=== PATIENT | female | born 1990 | race Two or more races ===

== ENCOUNTER 2024-12-01 08:57 | Emergency (ER) | payer BC, MEDICAID, SELFPAY ==
--- NOTE | 2024-12-01 09:01 | EKG_ITS ---
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
[2024-12-01 09:19] VITALS: BP 149/92; PULSE 77; RESP 16; TEMP 36.8; O2SAT 96; BMI 39.6
--- NOTE | 2024-12-01 09:26 | XR_ITS ---
Examination: CT brain head without contrast. 2-D sagittal coronal reconstructions Date and time of exam:December 01, 2024 0953 hours INDICATIONS: Onset headaches dizziness nausea vomiting beginning 3 days ago CTDI: vol (mGy):50.1 DLP: (mGycm):1005 Technique: Multiple CT axial sections of the brain have been obtained, 5 mm slice thickness. Contrast has not been administered. 2-D sagittal, coronal reconstructions have been obtained Low dose protocols were performed. One or more of the following dose reduction techniques were used; automated exposure control, adjustment of the mA and/or KV according to patient size, use of iterative reconstruction technique. Findings: No significant ventricular enlargement. Intra-axial or extra-axial hemorrhage density is not seen. No mass effect or midline shift Basal cisterns are not remarkable. Fourth ventricle is midline. Cranial vault intact. Impression: Negative for acute hemorrhage, mass effect or midline shift If the symptoms are new onset and persistent, consider brain MRI follow-up, stroke protocol
--- NOTE | 2024-12-01 09:27 | PD.EDRME ---
Rapid Medical Screening Exam RME Arrival date/time: 12/01/24 08:57 This is a 34-year-old female with complaints of headache for 3 days now vomiting and complaints of chest pain x 1 hour. I have greeted and performed a focused initial assessment of this patient. Initial appropriate labs ordered at this time. A comprehensive ED assessment and evaluation of the patient and analysis of all test and completion of medical decision making process will be conducted by additional ED provider. Chief Complaint: Headache Time Seen by Provider: 12/01/24 09:14 Vital signs: Vital Signs Temperature 98.2 F 12/01/24 09:19 Pulse Rate 77 12/01/24 09:19 Respiratory Rate 16 12/01/24 09:19 Blood Pressure 149/92 H 12/01/24 09:19 Pulse Oximetry (%) 96 12/01/24 09:19 Oxygen Delivery Method Room Air 12/01/24 09:19
[2024-12-01] MEDS: ONDANSETRON ODT 4 MG TABRAP PO (09:29)
[2024-12-01 09:57] LABS: Basophils % (Auto) 1 % (0-2.5); Eosinophils # (Auto) 0.1 Thou/mm3 (0.0-0.5); Eosinophils % (Auto) 2 % (0-10); Hematocrit 40.6 % (36.0-46.0); Hemoglobin 13.7 g/dL (12.0-16.0); Immature Granulocytes % (Auto) 0 % (0-0); Immature Granulocytes Auto 0.02 Thou/mm3 (0.00-0.00); Lymphocytes # (Auto) 2.3 Thou/mm3 (1.0-4.8); Lymphocytes % (Auto) 35 % (10-50); Mean Corpuscular HGB Conc 33.7 g/dl (31.0-37.0); Mean Corpuscular Hemoglobin 27.8 pg (25.0-35.0); Mean Corpuscular Volume 83 fL (80-100); Monocytes # (Auto) 0.3 Thou/mm3 (0.0-0.8); Monocytes % (Auto) 5 % (0-12); Neutrophils # (Auto) 3.7 Thou/mm3 (1.8-7.7); Neutrophils % (Auto) 57 % (37-80); Nucleated Red Blood Cell % 0 /100 WBC (0); Platelet Count 434 Thou/mm3 (140-440); RDW Standard Deviation 37.4 fL (36.4-46.3); Red Blood Count 4.92 Miln/mm3 (4.00-5.20); White Blood Count 6.4 Thou/mm3 (3.6-11.0)
[2024-12-01 10:02] LABS: Collection Type, Urine Clean Catch
[2024-12-01 10:11] LABS: Alanine Aminotransferase 20 U/L (10-49); Albumin, Serum 4.8 gm/dL (3.5-5.0); Albumin/Globulin Ratio 1.5 (1.2-2.2); Alkaline Phosphatase 91 U/L (46-116); Anion Gap 8 (7-16); Aspartate Amino Transferase 19 U/L (0-34); BUN/Creatinine Ratio 16 Ratio (12-20); Bilirubin,Total 0.4 mg/dL (0.3-1.2); Blood Urea Nitrogen 11 mg/dL (9-23); Calcium 9.9 mg/dL (8.3-10.6); Calcium (Corrected) 9.9 mg/dL (8.5-10.1); Carbon Dioxide 26.2 mMol/L (20.0-31.0); Chloride 104 mMol/L (98-107); Creatinine (Component) 0.7 mg/dL (0.6-1.3); Estimated Creatinine Clearance 134.9 mL/min (>60); Globulin 3.1 gm/dL (2.3-3.5); Glucose 98 mg/dL (74-106); Lipase 31 U/L (12-53); Osmolality,Calculated 275 (275-295); Potassium 4.1 mMol/L (3.4-5.1); Sodium 138 mMol/L (136-145); Total Protein 7.9 gm/dL (5.7-8.2); Troponin I < 0.002 ng/mL (0.0-0.045); eGFR > 60 See Note
[2024-12-01 10:15] LABS: HCG Qualitative,Urine Negative
[2024-12-01 10:17] LABS: Bacteria,Urine Rare; Bilirubin,Urine Negative (Negative); Blood,Urine Trace (Negative); Clarity,Urine Turbid (Clear/Hazy); Color,Urine Colorless (Lt Yel-Yel); Glucose, Urine Negative (Negative); Ketones,Urine Negative (Negative); Leukocyte Esterase,Urine Positive (Negative); Nitrite,Urine Negative (Negative); Protein,Urine 1+ (Neg - Trace); RBC,Urine 4 /hpf (0-3); Specific Gravity,Urine 1.016 (1.001-1.035); Squamous Epithelial Cell,Urine 5 /hpf (0-5); Urobilinogen,Urine Negative mg/dL (0.0-1.0); WBC,Urine 3 /hpf (0-5)
[2024-12-01 11:31] VITALS: BP 138/88; PULSE 68; RESP 18; TEMP 36.6; O2SAT 99
--- NOTE | 2024-12-01 11:37 | EDNOTE_ITS ---
<Statement entered by Kenisha Harris MD - 12/01/24 12:28> As co-signing physician, I was present and available for consult prn. I concur with the plan and care as documented by the midlevel provider. ED Headache RME/HPI General Chief Complaint: Headache Stated Complaint: CXP SINCE 629 TODAY,HEADACHE FOR 3 DAYS Time Seen by Provider: 12/01/24 09:14 Arrival date/time: 12/01/24 08:57 RME / HPI RME / HPI Narrative: 34-year-old female patient with no significant medical history, came in for evaluation regarding headache. Patient's been having headache for the last 3 days, described as dull ache, frontal in location, severity 6 out of 10 nonradiating. Patient also complained of left-sided chest pain since 6:00 this morning severity mild. Denies any cough denies any fever denies any neck pain denies any other complaints. No medication was taken prior to arrival. Related Data Previous Rx's ?Medication ?Instructions ?Recorded ibuprofen 600 mg tablet 600 mg PO Q6H #30 tabs 07/01/20 rizatriptan 10 mg tablet (Maxalt) 10 mg PO Q2H PRN headache #30 tabs 12/01/24 Allergies Allergy/AdvReac Type Severity Reaction Status Date / Time No Known Allergies Allergy Verified 12/01/24 09:00 Review of Systems Review of Systems Narrative Review of Systems: Review of system reviewed and within normal limits except mentioned in HPI ED Exam Narrative Physical exam: VITAL SIGNS: Reviewed. GENERAL APPEARANCE: Alert and interactive, follows commands, no acute distress, HEAD AND FACE: Non-traumatic. ENT: PERRL, pink conjunctivitis, eyelid no trauma, Mucous membrane moist. NECK: Supple, nontender, no nuchal rigidity. CHEST: No tenderness, no crepitus, no paradoxical movement, no retractions. LUNGS: Clear, well ventilated, symmetric, no rales, no wheezing, no ronchi, no stridor, good breath sounds bilaterally. HEART: Regular rate, regular rhythm, no murmur, no gallops. ABDOMEN: Soft, positive bowel sounds, nondistended, no guarding, nontender, no rebound, no masses, RECTAL: Deferred. GENITAL: Deferred. NEUROLOGICAL: Gross motor function intact sensory function intact, Appropriate for age. MUSCULOSKELETAL: low back nontender, full range of motion. EXTREMITIES: Nontender, full range of motion. SKIN: Color pink, dry, no rash, no lacerations, no abrasions, no contusions. LYMPHATICS: Deferred. Course Quality Measures none Orders Category Date Time Status EKG (ED ONLY) *Do not use* NOW Care 12/01/24 09:[address] head/brain wo con Stat Exams 12/01/24 09:26 Completed EKG (ED Only) Stat Exams 12/01/24 09:01 Ordered CBC Stat Lab 12/01/24 09:38 Completed Comprehensive Metabolic Panel Stat Lab 12/01/24 09:38 Completed HCG Qualitative,Urine Stat Lab 12/01/24 09:50 Completed Lipase Stat Lab 12/01/24 09:38 Completed Troponin I Stat Lab 12/01/24 09:38 Completed Urinalysis Stat Lab 12/01/24 09:50 Completed Ketorolac Inj [Toradol Inj] Med 12/01/24 11:32 Discontinued 30 mg IM X1 ONE Ondansetron Odt [Zofran Odt] Med 12/01/24 09:26 Discontinued 4 mg PO X1 ONE Vital Signs Vital signs: Vital Signs Temperature 98.2 F 12/01/24 09:19 Pulse Rate 77 12/01/24 09:19 Respiratory Rate 16 12/01/24 09:19 Blood Pressure 149/92 H 12/01/24 09:19 Pulse Oximetry (%) 96 12/01/24 09:19 Oxygen Delivery Method Room Air 12/01/24 09:19 Headache MDM Narrative MDM Narrative:: 34-year-old female patient with no significant medical history, came in for evaluation regarding headache. Patient's been having headache for the last 3 days, described as dull ache, frontal in location, severity 6 out of 10 nonradiating. Patient also complained of left-sided chest pain since 6:00 this morning severity mild. Denies any cough denies any fever denies any neck pain denies any other complaints. No medication was taken prior to arrival. Cardiac workup all came back normal. Patient EKG was noted to be normal sinus rhythm, no ST segment elevation depression noted. CT scan of the head also came back unremarkable. Results discussed with the patient. Prior to discharge patient told me that she is still having headache prior to giving Toradol IM. But her chest pain is totally gone. Patient is stable for discharge home on Maxalt. Patient was also advised to follow-up with her PCP and for referral to a neurologist if medication will not be helping her. Currently patient is ambulatory unaided. Patient data External records reviewed:: None Clinical information provided by:: patient Social determinants that could affect healthcare access:: none Patient has the following chronic illnesses:: None How is presenting disease/condition affected by chronic disease/condition?: no chronic disease Evaluation data The following diagnostics were reviewed and interpreted by me:: lab results, radiology exam(s) and EKG tracing(s) Lab and/or radiology exams considered but not ordered:: None Interpretation Summary: Cardiac workup all came back unremarkable. Troponin is normal CT scan of the head came back unremarkable. EKG showed normal sinus rhythm, ventricular rate of 82 bpm, no ST segment elevation depression Medications / Prescriptions Medications or Prescriptions considered but not ordered:: None Medication administrations:: Medication Administration History Discontinued Medications Ketorolac Tromethamine (Ketorolac Inj 60 Mg/2 Ml Vial) 30 mg IM X1 ONE Stop: 12/01/24 11:33 Ondansetron HCl (Ondansetron Odt 4 Mg Tabrap) 4 mg PO X1 ONE; Protocol Stop: 12/01/24 09:27 Last Admin: 12/01/24 09:29 Dose: 4 mg Documented By: GABRIEL Toradol and Zofran Consultations Consultation(s) initiated? (list below): No Diagnosis Differential diagnosis headache: migraine, tension headache and headache Most likely diagnosis given after review of the tests above:: Headache, chest pain Admission Indicated Admission indicated?: not indicated Admission Request Was there a request for admission?: No Disposition Plan Disposition Plan: Discharge Discharge Attestation Discharge Attestation: The patient was given an opportunity to ask questions and understood the discharge instructions. Discharge instructions specifically effects, indications for sooner follow up or return to the emergency department, and the expected course of current diagnosis. Patient condition: Stable Discharge Plan Plan Patient Disposition: HOME (Self Care) Disposition Comment: stable Prescriptions/Referrals Prescriptions/Med Rec: New rizatriptan [Maxalt] 10 mg tablet 10 mg PO Q2H PRN (Reason: headache) Qty: 30 0RF Rx Instructions: do not exceed 3 doses per 24 hrs No Action ibuprofen 600 mg tablet 600 mg PO Q6H Qty: 30 0RF Referrals: Gary Cobb PA-C [Primary Care Provider] - In 1 week Problem List Clinical Impression: Headache, Chest pain Patient/Caregiver Discharge Instructions Discharge Activity: activity as tolerated Education Materials: Self-Care for Headaches, ED Chest Pain, Noncardiac Additional Instructions: Thank you for the opportunity for serving you today. You are stable for discharged . You are advised to: Follow-up with your PCP in 1 to 2 days Return to ED for worsening of symptoms Increase oral fluids Take medication as prescribed Print Language: Thai Stand Alone Forms: Sarahy Award Info., Patient Portal Info Letter PA/ARIEL Supervising Physician STEVEN/ARIEL Supervising Physician: MD Steven
[2024-12-01] MEDS: KETOROLAC INJ 60 MG/2 ML VIAL 30 MG IM (11:42)
== END 2024-12-01 11:45 | disposition home or self-care (01) ==
PROVIDERS: Nurse Practitioner Primary Care; Emergency Provider Emergency Medicine; PCP Physician Assistant
DX: R51.9 Headache, unspecified (principal); R07.89 Other chest pain; R42 Dizziness and giddiness; R11.2 Nausea with vomiting, unspecified; I49.8 Other specified cardiac arrhythmias
CPT/HCPCS: 36415; 70450; 80053; 81001; 81025; 83690; 84484; 85025; 93005; 96372; 99284; J1885; Q0162

== ENCOUNTER → 2025-05-25 | Outpatient (CLI) | payer BC, MEDICAID, SELFPAY ==
[2025-05-25 09:01] LABS: Basophils # (Auto) 0.0 Thou/mm3 (0.0-0.2); Basophils % (Auto) 0 % (0-2.5); Eosinophils # (Auto) 0.1 Thou/mm3 (0.0-0.5); Eosinophils % (Auto) 2 % (0-10); Hematocrit 40.8 % (36.0-46.0); Hemoglobin 13.3 g/dL (12.0-16.0); Immature Granulocytes Auto 0.01 Thou/mm3 (0.00-0.00); Lymphocytes # (Auto) 2.1 Thou/mm3 (1.0-4.8); Lymphocytes % (Auto) 32 % (10-50); Mean Corpuscular HGB Conc 32.6 g/dl (31.0-37.0); Mean Corpuscular Hemoglobin 28.0 pg (25.0-35.0); Mean Corpuscular Volume 86 fL (80-100); Monocytes # (Auto) 0.3 Thou/mm3 (0.0-0.8); Monocytes % (Auto) 5 % (0-12); Neutrophils # (Auto) 4.0 Thou/mm3 (1.8-7.7); Neutrophils % (Auto) 61 % (37-80); Nucleated Red Blood Cell # 0.00 Thou/mm3 (0.00-0.00); Nucleated Red Blood Cell % 0 /100 WBC (0); Platelet Count 438 Thou/mm3 (140-440); RDW Standard Deviation 40.6 fL (36.4-46.3); Red Blood Count 4.75 Miln/mm3 (4.00-5.20); White Blood Count 6.6 Thou/mm3 (3.6-11.0)
[2025-05-25 09:04] LABS: Glucose Estimated Average 97 mg/dL (80-131); Hemoglobin A1C 5.0 % Hgb (4.8-6.0)
[2025-05-25 09:12] LABS: Alanine Aminotransferase 19 U/L (10-49); Albumin, Serum 4.3 gm/dL (3.5-5.0); Albumin/Globulin Ratio 1.6 (1.2-2.2); Alkaline Phosphatase 75 U/L (46-116); Anion Gap 10 (7-16); Aspartate Amino Transferase 15 U/L (0-34); BUN/Creatinine Ratio 13 Ratio (12-20); Bilirubin,Total 0.6 mg/dL (0.3-1.2); Blood Urea Nitrogen 9 mg/dL (9-23); Calcium 8.9 mg/dL (8.3-10.6); Calcium (Corrected) 8.9 mg/dL (8.5-10.1); Carbon Dioxide 23.8 mMol/L (20.0-31.0); Cardiac Risk Estimate 4.5 RATIO (3.7-5.6); Chloride 108 mMol/L (98-107); Cholesterol 208 mg/dL (132-200); Creatinine (Component) 0.7 mg/dL (0.6-1.3); Free T4 (Free Thyroxine) 0.99 ng/dL (0.89-1.76); Globulin 2.7 gm/dL (2.3-3.5); Glucose 103 mg/dL (74-106); HDL Cholesterol 46 mg/dL (40-60); LDL Cholesterol,Calculated 126 mg/dL (0-130); Osmolality,Calculated 281 (275-295); Potassium 4.1 mMol/L (3.4-5.1); Sodium 142 mMol/L (136-145); Thyroid Stimulating Hormone 0.87 uIU/mL (0.55-4.78); Total Protein 7.0 gm/dL (5.7-8.2); Triglycerides 180 mg/dL (30-150); eGFR > 60 See Note
[2025-05-25 09:55] LABS: Hepatitis C Antibody Non Reactive (Non React)
[2025-05-29 09:40] LABS: Direct LDL* 137 mg/dL (<100)
== END | disposition home or self-care (01) ==
PROVIDERS: PCP Nurse Practitioner Family; Referring Provider Nurse Practitioner Family; Visit Provider Nurse Practitioner Family
DX: Z13.220 Encounter for screening for lipoid disorders (principal); Z11.59 Encounter for screening for other viral diseases; Z13.1 Encounter for screening for diabetes mellitus; Z13.29 Encounter for screening for other suspected endocrine disorder
CPT/HCPCS: 36415; 80053; 80061; 83036; 83721; 84439; 84443; 85025; 86803

== ENCOUNTER → 2025-08-18 | Outpatient (CLI) | payer BC, MEDICAID, SELFPAY ==
--- NOTE | 2025-08-18 12:59 | XR_ITS ---
Examination: Abdomen sonogram, complete Date and time of exam: August 18, 2025, 1329 hours INDICATIONS: Lump in the left upper abdomen note is beginning 3 days ago. Technique: Multiple real-time grayscale transabdominal sonographic images of the abdomen have been obtained. Findings: Normal gallbladder. Normal common bile duct 0.3 cm Pancreatic head 3.0 cm Aorta not enlarged Liver 15.4 cm lobular contour fatty infiltration Normal hepatopedal portal venous flow Patent IVC Right kidney 10.1 cm cortex 2.0 cm Left kidney 9.8 cm cortex 2.2 cm No hydronephrosis Spleen 10.0 cm IMPRESSION: Normal gallbladder Normal common bile duct Fatty infiltration throughout the liver, suspect primary hepatocellular disease
[2025-08-18 14:40] LABS: Cardiac Risk Estimate 4.3 RATIO (3.7-5.6); Cholesterol 232 mg/dL (132-200); HDL Cholesterol 54 mg/dL (40-60); LDL Cholesterol,Calculated 128 mg/dL (0-130); Triglycerides 250 mg/dL (30-150)
[2025-08-18 16:49] LABS: Urea Breath Test Positive (Negative)
[2025-08-25 06:59] LABS: Direct LDL* 137 mg/dL (<100)
== END | disposition home or self-care (01) ==
LOC: CDIM 12:55 → COPL 13:42
PROVIDERS: PCP Nurse Practitioner Family; Referring Provider Nurse Practitioner Family; Visit Provider Radiology Diagnostic Radiology
DX: K76.0 Fatty (change of) liver, not elsewhere classified (principal); Z13.220 Encounter for screening for lipoid disorders; K21.9 Gastro-esophageal reflux disease without esophagitis
CPT/HCPCS: 36415; 76700; 80061; 83013; 83014; 83721

== ENCOUNTER → 2025-10-02 | Outpatient (CLI) | payer BC, MEDICAID, SELFPAY ==
[2025-10-02 10:18] LABS: Urea Breath Test Positive (Negative)
== END | disposition home or self-care (01) ==
LOC: COPL 08:57
PROVIDERS: PCP Family Medicine; Referring Provider Student in an Organized Health Care Education/Training Program; Visit Provider Student in an Organized Health Care Education/Training Program
DX: Z86.19 Personal history of other infectious and parasitic diseases (principal)
CPT/HCPCS: 83013; 83014